=== PATIENT | female | born 1950 | race Caucasian/White ===

== ENCOUNTER 2016-09-26 06:46 | Day surgery (SDC) | payer MEDICARE, BC ==
[2016-09-26] MEDS ORDERED: DEXAMETHASONE PRESERVATIVE FREE 10MG/ML VIAL IV ONE (11:06)
[2016-09-26] MEDS ORDERED: LIDOCAINE 1% W/EPI 1:200,000 MPF 30ML SQ ONE (11:06)
[2016-09-26] MEDS ORDERED: BUPIVACAINE 0.5% W/EPI MPF 30 ML VIAL IVP ONE (11:06)
[2016-09-26] MEDS ORDERED: HYDROCODONE/APAP 7.5/325MG TABLET PO ONE (11:06)
[2016-09-26] MEDS ORDERED: LIDOCAINE 2% MDV (20MG/ML) 20ML VIAL IV ONE (15:46)
[2016-09-26] MEDS ORDERED: MIDAZOLAM HCL 2MG/2ML VIAL IV ONE (15:46)
[2016-09-26] MEDS ORDERED: FENTANYL PF 100MCG/2ML VIAL IV ONE (15:46)
[2016-09-26] MEDS ORDERED: PROPOFOL 10 MG/ML VIAL IV ONE (15:46)
--- NOTE | 2016-09-28 08:40 | Operative Note ---
PAIN SERVICE OPERATIVE REPORT DATE OF PROCEDURE: 09/26/2016. PREOPERATIVE DIAGNOSIS: CERVICAL SPONDYLOSIS WITHOUT MYELOPATHY, ICD10 CODE M47.812. PROCEDURE: Radiofrequency rhizotomy right cervical facets 3-4, 4-5, 5-6, and 6-7. SURGEON: Sanchez Rosa D.O. ANESTHESIA: Local sedation. ANESTHESIA PROVIDER: Harry Connell CRNA. INDICATIONS: This patient presents with neck pain to the right. Examination shows tenderness in the cervical spine. Range of motion does cause pain to the neck with extension. Diagnostics show multilevel spondylosis. A facet series resulted in up to 75 to 90 percent pain control. Due to the failure of all therapies and success of the facet series, she is here for rhizotomy for more long-term relief. DESCRIPTION OF PROCEDURE: Intravenous line, vital sign monitoring, and IV sedation. Prepped and draped with sterile technique. Cervical facets in the area of pain on the right at 3-4, 4-5, 5-6, and 6-7 were marked and infiltrated. A 20-gauge rhizotomy cannula was positioned. Stimulation trials were conducted. Rhizotomy burn was performed. Local with anti-inflammatory into the sites. Topical antibiotic and sterile dressings were applied. We will monitor and evaluate. Sanchez Rosa D.O. Date Time Job Number: [id number] cc: Ary Quan D.O., F.A.A.Josue BUSTILLOS
== END 2016-09-26 09:30 | disposition home or self-care (01) ==
LOC: SUR 06:46
PROVIDERS: ATTEND Pain Medicine Interventional Pain Medicine
DX: M47.812 Spondylosis without myelopathy or radiculopathy, cervical region (principal); I10 Essential (primary) hypertension; E78.00 Pure hypercholesterolemia, unspecified
CPT/HCPCS: 64633; 64634 ×3; 01936; J1100; J3010

== ENCOUNTER 2018-05-23 07:25 | Day surgery (SDC) | payer MEDICARE, BC ==
--- NOTE | 2018-05-23 06:39 | History and Physical - Ferro ---
CHIEF COMPLAINT/HISTORY OF CHIEF COMPLAINT: This patient presents with a history of intractable lumbar radiculopathy. Due to the failure of therapy a spinal cord stimulator trial was conducted on 04/17/18 with 75+% pain control. Due to the failure of therapy and the success of the stimulator trial, the patient presents today for implantation of a permanent system. PAST MEDICAL HISTORY: Asthmatic bronchitis, hypertension, and gastrointestinal regurgitation. PAST SURGICAL HISTORY: Spinal infusion device, knee surgery, and arthroscopic surgery. MEDICATIONS ON ADMISSION: List to be provided. ALLERGIES: CEFTIN AND TAPE. FAMILY/PSYCHOSOCIAL HISTORY: Social history - Noncontributory. Family history - Noncontributory. SYSTEMS REVIEW: The patient is appropriate in no acute distress. The remainder of the systems review is positive for blood pressure, degenerative arthritis, fibromyalgia, anemia, depression, trouble sleeping and anxiety disorder. PHYSICAL EXAMINATION: Height is 5'7", weight is 170. No vital signs. HEENT: Within normal limits. LUNGS: Clear. HEART: Regular rate and rhythm. ABDOMEN: Nontender. MUSCULOSKELETAL: Examination of the musculoskeletal system shows diffuse tenderness at the lumbar spine. Range of motion does produce pain throughout the low back and extending into the lower extremities. Motor and sensory field function is intact. There are mild sensory abnormalities across L4 and L5 and weakness into both lower extremities. No assistive device required. NEUROLOGIC: Cranial nerves are intact. IMPRESSION: INTRACTABLE LUMBAR RADICULOPATHY. PLAN: The patient is here for implantation of a permanent spinal cord stimulator due to the failure of therapy and the success of the trial. The procedure will be considered outpatient although an overnight stay will be evaluated. The potential risks, side effect and complications have all been reviewed and discussed. JOB NUMBER: [id number] [facility]
[~2018-05-23 07:25] MED LIST: ACETAMINOPHEN 1,000 MG/100 ML BTL IV ONE; CLINDAMYCIN 600MG/50ML PREMIX 600 MG/50 ML BAG IVPB ONE; FAMOTIDINE 20MG TABLET PO ONE; MECLIZINE 25 MG TABLET PO ONE; METOCLOPRAMIDE 10 MG TABLET PO ONE
[2018-05-23] MEDS ORDERED: PROPOFOL 10 MG/ML VIAL IV ONE (07:26)
[2018-05-23] MEDS ORDERED: MIDAZOLAM HCL 2MG/2ML VIAL IV ONE (07:26)
[2018-05-23] MEDS ORDERED: 0.9 % SODIUM CHLORIDE 10 ML VIAL IVP ONE (07:26)
[2018-05-23] MEDS ORDERED: BUPIVACAINE 0.5% W/EPI MPF 30 ML VIAL IVP ONE (07:26)
[2018-05-23] MEDS ORDERED: FENTANYL PF 100MCG/2ML VIAL IV ONE (07:26)
[2018-05-23] MEDS ORDERED: KETOROLAC 30 MG/ML VIAL IVP ONE (07:26)
[2018-05-23] MEDS ORDERED: LIDOCAINE 2% MDV (20MG/ML) 20ML VIAL IV ONE (07:26)
[2018-05-23] MEDS ORDERED: CLINDAMYCIN (PEDIATRIC DOSING) 150 MG/ML VIAL IVPB ONE (07:26)
[2018-05-23] MEDS ORDERED: LIDOCAINE 1% W/EPI 1:200,000 MPF 30ML SQ ONE (07:26)
[2018-05-23] MEDS ORDERED: **ER** KETAMINE HCL 500MG/10ML VIAL IV ONE (07:26)
--- NOTE | 2018-05-24 16:36 | Operative Note ---
DATE: 05/23/2018. PREOPERATIVE DIAGNOSES: 1. INTRACTABLE LUMBAR RADICULOPATHY, ICD-10 CODE M54.16 AND M54.17. 2. TWO-LEAD SPINAL CORD STIMULATOR INTERNAL GENERATOR NONFUNCTIONAL. PROCEDURES: 1. Incision, subcutaneous dissection, and removal of two implanted spinal cord stimulators. 2. Incision, subcutaneous dissection, and removal of internal pulse generator for two nonfunctional stimulators at the right posterior gluteal margin. 3. Left epidural access at T12-L1, placement of spinal cord stimulator lead 1, [employer] Infineon 16 with 16 electrodes, positioned left T7. 4. Fluoroscopically guided left epidural access at T11-12 with placement of spinal cord stimulator lead 2, [employer] Infinion 16 with 16 electrodes , positioned right T7. 5. Complex programming of lead 1 over 20 minutes followed by complex programming of lead 2 over 20 minutes. 6. Incision, subcutaneous dissection, and anchoring of lead 1 and lead 2 to the supraspinous fascia with [employer] locking anchors. 7. Revision of right posterior gluteal margin pouch for placement of generator identified as a nanoMR programmable rechargeable Wavewriter generator. 8. Tunneling between pouches with placement of external portion of lead 1 and lead 2 into the generator pouch, each lead interfaced to the generator. 8. Placement of generator pouch securing to posterior fascia with nonabsorbable suture. Placement of leads into the pouch. 9. Closure of incisions with Stratafix suture, #2-0 for the fascia, and #3-0 for the skin. Dermabond closure. 10. Complex recovery room programming, internal generator, home use, two stimulators, in the recovery room for 20 minutes. SURGEON: Sanchez Rosa D.O. INDICATIONS: This patient presents with a history of intractable pain which is bilateral in the low back, hips, and legs. A number of years previously a spinal cord stimulator was implanted with an internal generator which, over time , became nonfunctional. She was given the options to remove or replace, and she opted to remove and replace. DESCRIPTION OF PROCEDURE: Intravenous lines, vital sign monitoring, and intravenous sedation. Prepped and draped with sterile technique. Under imaging the previous incisional site for the two implanted leads was infiltrated with local. An incision was made and subcutaneous dissection was conducted to the leads and their anchors. The suture was cut and the lead anchors were removed. Each of the two leads was then removed intact. Each electrode was accounted for. At the right posterior gluteal margin generator pouch, the skin was infiltrated. An incision was made and subcutaneous dissection was conducted to the generator. The generator and its connections to the leads were removed intact. Antibiotic irrigation and Bovie for hemostasis. At T12-L1 and T11-12, the skin was infiltrated. Using two separate curved access Epimed needles with loss of resistance, the space was accessed. At 12-1 spinal cord stimulator lead 1, a [employer] Infineon 16 with 16 electrodes, was positioned left midline of T7. With the access at T11-12, spinal cord stimulator lead 2, a [employer] Infineon 16 with 16 electrodes, was positioned right of T7. Complex programming of lead 1 over 20 minutes was followed by complex programming of lead 2 over 20 minutes. This resulted in complete pattern of stimulation across the back and legs. The patient indicated we had all of the areas of her pain. She was given the options to implant, continue to program, or remove. She opted to implant. The questions were repeated with the same response. The skin was infiltrated. An incision was made, and subcutaneous dissection was conducted to the supraspinous fascia. Each of the needles were removed, and the leads were anchored to the supraspinous fascia with a [employer] locking anchor. Antibiotic irrigation and Bovie for hemostasis. The previous right posterior gluteal margin generator pouch was then revised and enlarged to accommodate the [employer] generator. A tunneling tool was used to carry the leads into the generator pouch, and then each lead was interfaced to the generator. Antibiotic irrigation and Bovie for hemostasis. The generator was placed into the pouch and was secured to the posterior fascia with nonabsorbable suture. Both incisions were closed using Stratafix suture with #2-0 for the fascia and #3-0 for the skin. Dermabond closure. The patient was transferred to the recovery room stable with no side effects from the procedure or the sedation. When fully awake and alert, complex programming of the generator for 20 minutes was performed re-establishing stimulation of pain control to all appropriate areas. The patient and her were instructed on the use of the system and were provided with information on air messaging and then prepared for discharge. DISCHARGE INSTRUCTIONS: 1. The sites are to remain clean and dry. No showering or bathing. Although the Stratafix will allow showering, she should not sit in water. 2. Standard medications to be resumed including Levaquin, the antibiotic, 500 mg once a day for 14 days. 3. The office is to contact the patient in 24 to 48 hours to set up an appointment in seven to ten days to evaluate the sites. Until then her activities should stay low. 4. All other instructions were provided including numbers to contact with problems. She was then discharged. JOB NUMBER: [id number] cc: Ashley Zamorano
--- NOTE | 2018-05-25 20:26 | RADIOLOGY REPORT ---
EXAM: SPINE, 1 VIEW HISTORY: PAIN STIMULATOR PLACEMENT. TECHNIQUE: A single AP view of the lumbar spine was performed. FINDINGS: Stimulator lead tips are at the T5-6 level. IMPRESSION: STIMULATOR LEAD TIPS ARE AT THE T5-6 LEVEL. JOB NUMBER: [id number] MTDD
== END 2018-05-23 11:45 | disposition home or self-care (01) ==
LOC: SUR 07:25
PROVIDERS: ATTEND Pain Medicine Interventional Pain Medicine
DX: M54.16 Radiculopathy, lumbar region (principal); M54.17 Radiculopathy, lumbosacral region; I10 Essential (primary) hypertension; E78.00 Pure hypercholesterolemia, unspecified; E11.9 Type 2 diabetes mellitus without complications; J45.909 Unspecified asthma, uncomplicated; K21.9 Gastro-esophageal reflux disease without esophagitis
CPT/HCPCS: 63663; 63685; 01936; 95972; 36416; 82948; 72020; J1885; J3010; C1820; C1883

== ENCOUNTER 2018-08-06 07:51 | Day surgery (SDC) | payer MEDICARE, BC ==
--- NOTE | 2018-08-05 12:53 | History and Physical - Ferro ---
CHIEF COMPLAINT/HISTORY OF CHIEF COMPLAINT: This patient presents with a history of intractable cervical radiculopathy. Due to the failure of therapy a spinal cord stimulator was conducted on 07/16/18 with 75+% pain control. Due to the failure of therapy and the success of the trial, the patient presents today for implantation of a permanent system. PAST MEDICAL HISTORY: Asthmatic bronchitis, hypertension, and gastrointestinal disease. PAST SURGICAL HISTORY: Spinal infusion pump, knee surgery, and arthroscopic surgery. MEDICATIONS ON ADMISSION: List to be provided. ALLERGIES: SEPTA AND TAPE. FAMILY/PSYCHOSOCIAL HISTORY: Social history - Noncontributory. Family history - Noncontributory. SYSTEMS REVIEW: The patient is appropriate in no acute distress. The remainder of the systems review is positive for blood pressure problems, degenerative arthritis, fibromyalgia, anemia, depression, difficulty sleeping, and anxiety disorder. PHYSICAL EXAMINATION: Height is 5'7", weight is 170. No vital signs. HEENT: Within normal limits. LUNGS: Clear. HEART: Rapid and regular. ABDOMEN: Nontender. MUSCULOSKELETAL: Examination of the musculoskeletal system shows diffuse tenderness throughout the cervical spine and extending along the trapezius, suprascapular, deltoid, and medial rhomboid muscle groups. There is a bilateral upper extremity component producing mild sensory and motor weakness. Hand grasp and aircraft riveter strength is intact. NEUROLOGIC: Cranial nerves are intact. IMPRESSION: CERVICAL RADICULOPATHY, ICD-10 CODE M54.12. PLAN: The patient is here for implantation of a permanent spinal cord stimulator after the failure of therapy and the success of the trial. The procedure will be considered outpatient although an overnight stay will be evaluated. JOB NUMBER: [id number] MTDD
[~2018-08-06 07:51] MED LIST changes: -CLINDAMYCIN 600MG/50ML PREMIX 600 MG/50 ML BAG IVPB ONE; +LEVOFLOXACIN 500MG IVPB 500 MG/100 ML BAG IVPB ONE
[2018-08-06] MEDS ORDERED: FENTANYL PF 100MCG/2ML VIAL IV ONE (07:52)
[2018-08-06] MEDS ORDERED: LIDOCAINE 1% W/EPI 1:200,000 MPF 30ML SQ ONE (07:52)
[2018-08-06] MEDS ORDERED: BUPIVACAINE 0.5% W/EPI MPF 30 ML VIAL IVP ONE (07:52)
[2018-08-06] MEDS ORDERED: 0.9 % SODIUM CHLORIDE 500ML 500 ML IV ONE (07:52)
[2018-08-06] MEDS ORDERED: PROPOFOL 10 MG/ML VIAL IV ONE (07:52)
[2018-08-06] MEDS ORDERED: LIDOCAINE 2% MDV (20MG/ML) 20ML VIAL IV ONE (07:52)
[2018-08-06] MEDS ORDERED: KETAMINE HCL 100MG/1ML VIAL INJ ONE (07:52)
[2018-08-06] MEDS ORDERED: MIDAZOLAM HCL 2MG/2ML VIAL IV ONE (07:52)
[2018-08-06] MEDS ORDERED: LEVOFLOXACIN IV ONE (07:52)
--- NOTE | 2018-08-07 21:08 | Operative Note ---
DATE OF SURGERY: 08/06/2018 PREOPERATIVE DIAGNOSIS: CERVICAL RADICULOPATHY, ICD-10 CODE = M54.12. SURGERY: 1. FLUOROSCOPIC-GUIDED EPIDURAL ACCESS LEFT T1-2. PLACEMENT OF SPINAL CORD STIMULATOR LEAD 1, A [employer] INFINION 16 WITH 6 ELECTRODES POSITIONED LEFT C2. 2. FLUOROSCOPIC-GUIDED EPIDURAL ACCESS LEFT T2-3. PLACEMENT OF SPINAL CORD STIMULATOR LEAD 2, A [employer] INFINION 16 WITH 6 ELECTRODES POSITIONED RIGHT C2. 3. COMPLEX PROGRAMMING OF LEAD 1 OVER 20 MINUTES. COMPLEX PROGRAMMING OF LEAD 2 OVER 20 MINUTES. 4. INCISION, SUBCUTANEOUS DISSECTION, AND ANCHORING OF LEAD 1 AND LEAD 2 TO SUPRASPINOUS FASCIA USING A [employer] LOCKING ANCHOR. 5. INCISION, SUBCUTANEOUS DISSECTION, AND CREATION OF A SUBCUTANEOUS POUCH AT RIGHT FLANK, A SITE PICKED BY THE PATIENT FOR THE GENERATOR, A [employer] SCIENTIFIC PROGRAMMABLE, RECHARGEABLE WAVEWRITER. 6. TUNNELING BETWEEN POUCHES. PLACEMENT OF EXTERNAL PORTION OF LEAD 1 AND LEAD 2 INTO GENERATOR POUCH, EACH LEAD INTERFACED WITH GENERATOR. 7. CLOSURE OF BOTH INCISIONS USING STRATAFIX SUTURE, #2-0 FASCIA, #3-0 SKIN. DERMABOND CLOSURE. 8. COMPLEX RECOVERY ROOM PROGRAMMING INTERNAL GENERATOR HOME USE TWO STIMULATORS 20 MINUTES. SURGEON: TESSA NGUYEN D.O. ANESTHESIA: LOCAL SEDATION. ANESTHESIA PROVIDER: ARMANDO PLATT CRNA. INDICATION: This patient presents with a history of an intractable cervical radiculopathy. Due to the failure of all previous therapies and the success of a spinal cord stimulator trial, the patient presents today by request for permanent implantation. SURGERY: Intravenous line, vital sign monitoring, IV sedation by Anesthesia. Patient positioned prone. Sterile prep, sterile technique. Under imaging from the left, the epidural interspace at T1-2 and 2-3 marked and infiltrated. Standard epidural needles with [id number] at 1-2, spinal cord stimulator lead 1, a [employer] Infinion 16 with 6 electrodes was positioned left of midline at C2. With the epidural access at T2-3, spinal cord stimulator lead 2, a [employer] Infinion 16 with 6 electrodes was positioned right of midline at C2. Complex programming of lead 1 over 20 minutes followed by complex programming of lead 2 over 20 minutes resulting in complete patterns of stimulation across the neck, head, and into the shoulders and arms. The patient indicating we had all the areas of the pain. She was given the option to implant, continue to program or remove; she opted to implant. The questions were repeated with the same response. The skin above and below both needles infiltrated, incision made, and subcutaneous dissection was conducted into the supraspinous fascia. The needles were removed and then each lead was anchored to the supraspinous fascia with a [employer] locking anchor. At the right flank, a site picked by the patient for the generator, skin infiltrated, incision made, and subcutaneous dissection was conducted to form a pouch of suitable size and depth for the generator, a [employer] programmable, rechargeable, WaveWriter. A tunneling tool was used to carry the leads into the generator pouch and then each lead was interfaced with the generator. Antibiotic irrigation and Bovie hemostasis. With the generator in the pouch and the leads in the pouch, both incisions were closed using STRATAFIX suture, #2-0 fascia and #3-0 skin. Dermabond closure. he patient was transported to the Recovery stable. No side-effects from the procedure or the sedation. When fully awake and alert, complex programming in the Recovery Room performed over 20 minutes reestablishing stimulation to all the appropriate areas. She was instructed on the use of the system, as was her , and then prepared for discharge by their request. DISCHARGE INSTRUCTIONS: 1. The sites will remain clean and dry. No showering or bathing in any way that would disrupt dressings. Although the Dermabond will allow showing, she should not sit in water or tub. 2. Standard medications will be resumed including the antibiotic, Levaquin, 500 mg once a day for 14 days. 3. The office will contact the patient in the next 24 to 48 hours to set up a time in 7 to 10 days for us to evaluate the sites. Until then, the sites should remain intact. Do not pull the dressing off. All other instructions provided, numbers to contact if problems given. She will be seen in the office. cc: Dr. George Hinds JOB NUMBER: [id number] MTDD
== END 2018-08-06 12:55 | disposition home or self-care (01) ==
LOC: SUR 07:51
PROVIDERS: ATTEND Pain Medicine Interventional Pain Medicine
DX: M54.12 Radiculopathy, cervical region (principal); J45.909 Unspecified asthma, uncomplicated; I10 Essential (primary) hypertension
CPT/HCPCS: 63685; 63650 ×2; 01936; 95972; J3010; J1956; J3490; C1820; C1883; J7040

== ENCOUNTER 2019-08-05 08:23 | Day surgery (SDC) | payer MEDICARE, BC ==
--- NOTE | 2019-08-05 06:42 | History and Physical - Ferro ---
CHIEF COMPLAINT/HISTORY OF CHIEF COMPLAINT: This patient presents with a history of an intractable lumbar radiculopathy. Diagnostic studies show lumbar spinal stenosis at L2-L3, L3-L4, and L4-L5. The implanted spinal infusion system is in place and the spinal catheter access is at L4-L5. Her pain pattern is bilateral lower extremity radiculopathy aggravated and intensified with ambulation, reduced by sitting and forward bending. Her treatment history has been extensive perhaps 16-20 years. Surgical evaluation had recommended multiple levels of fusion and decompression. Due to the failure of therapy and the symptom pattern consistent with neurogenic intermittent claudication secondary to spinal stenosis, she is here for interspinal spacer placement at L2-L3 and L3-L4. PAST MEDICAL HISTORY: Asthmatic bronchitis, hypertension, and gastrointestinal disease. PAST SURGICAL HISTORY: Lumbar spinal infusion device placement, spinal cord stimulator placement, and knee surgery. MEDICATIONS ON ADMISSION: List to be provided. ALLERGIES: SEPTA AND TAPE. FAMILY/PSYCHOSOCIAL HISTORY: Family history - Noncontributory. Social history - Noncontributory. SYSTEMS REVIEW: The patient is appropriate in no acute distress. The remainder of the systems review is positive for blood pressure, degenerative arthritis, fibromyalgia, anemia, depression, difficulty sleeping, and anxiety disorder. PHYSICAL EXAMINATION: Height is 5'7", weight is 170. No vital signs. HEENT: Within normal limits. LUNGS: Clear. HEART: Rapid and regular. ABDOMEN: Nontender. MUSCULOSKELETAL: Examination of the musculoskeletal system shows a bilateral lower extremity pain pattern which has intensified with ambulation, reduced by forwarding bending and sitting. There is mild lower extremity weakness and numbness. Ambulation - No assistive device utilized. NEUROLOGIC: Cranial nerves are intact. IMPRESSION: LUMBAR SPINAL STENOSIS WITH NEUROGENIC INTERMITTENT CLAUDICATION, ICD-10 CODE M48.062. PLAN: The patient is here for interspinal spacer placement at L2-L3 and L3-L4. The procedure will be considered outpatient, although an overnight stay will be evaluated. The potential risks, side effects and complications have been reviewed and discussed. Interaction with a company commercial representative and clinical specialist is provided. JOB NUMBER: [id number] MTDD
[~2019-08-05 08:23] MED LIST changes: -ACETAMINOPHEN 1,000 MG/100 ML BTL IV ONE; +ACETAMINOPHEN 1,000 MG/100 ML BTL IVPB ONE
[2019-08-05] MEDS ORDERED: MIDAZOLAM HCL 2MG/2ML VIAL IV ONE (08:24)
[2019-08-05] MEDS ORDERED: LIDOCAINE 2% MDV (20MG/ML) 20ML VIAL IV ONE (08:24)
[2019-08-05] MEDS ORDERED: PROPOFOL 10 MG/ML VIAL IV ONE (08:24)
[2019-08-05] MEDS ORDERED: FENTANYL PF 100MCG/2ML VIAL IV ONE (08:24)
[2019-08-05] MEDS ORDERED: RINGERS SOLUTION,LACTATED 1,000 ML IV ONE (09:05)
[2019-08-05] MEDS ORDERED: LIDOCAINE 1% W/EPI 1:200,000 MPF 30ML SQ ONE (11:47)
[2019-08-05] MEDS ORDERED: BUPIVACAINE 0.5% W/EPI MPF 30 ML VIAL SQ ONE (11:48)
[2019-08-05] MEDS ORDERED: HYDROCODONE/APAP 7.5/325MG TABLET PO ONE (12:24)
--- NOTE | 2019-08-05 13:01 | Operative Note - Ferro ---
DATE OF SURGERY: 08/05/2019 PREOPERATIVE DIAGNOSIS: LUMBAR SPINAL STENOSIS WITH NEUROGENIC INTERMITTENT CLAUDICATION, ICD-10 CODE M48.062. OPERATION: 1. FLUOROSCOPICALLY GUIDED PLACEMENT OF INTERSPINOUS PROCESS SPACER AT L2-L3 WITH FLUOROSCOPICALLY GUIDED IMAGING. 2. FLUOROSCOPICALLY GUIDED PLACEMENT OF INTERSPINOUS SPACER AT L3-L4 WITH RADIOLOGIC SUPERVISION AND DIRECTION. SURGEON: Sanchez Rosa D.O. ANESTHESIA: Local sedation ANESTHESIA PROVIDER: Harry Connell CRNA INDICATION: This patient presents with multiple level lumbar spinal stenosis and pain in the legs which has been characterized as neurogenic intermittent claudication. The pain is aggravated and intensified with ambulation and with forward bending and sitting it subsides, eliminates and controls the pain. The treatment history has been extensive and unsuccessful. She is here for interspinous spacer placement for indirect lumbar decompression at L2-L3 and L3- L4 along with what was identified under imaging with lumbar spinal stenosis. PROCEDURE: Intravenous line, vital sign monitoring, IV sedation. The patient is positioned prone, sterile prep, sterile technique, imaging and local for infiltration. The spinal interspace at L3-L4 was identified, skin infiltrated, using a series of dilators the interspinous space was opened, a reaming device was used to clean the interspinous ligament at the base posterior to the lamina and then a size 12 interspinous spacer was inserted, expanded, distracting the spinous processes at L3-L4. The device was removed, the spacer had been tapped into place, seated posterior to the lamina at L3-L4. Antibiotic irrigation. On AP imaging the spinal interspace at L2-L3 was marked, infiltrated with local, then a series of dilators was used to distract the spinous processes at L2-L3. A reaming device was used to clean out the interspinous ligament and then a #12 or size 12 interspinous spacer was inserted under imaging, positioned posterior to the lamina on AP and lateral imaging, and the expanded distracting the spinous processes at L2-L3. The spacer was left in place, the inserting device was removed, antibiotic irrigation was then performed. A 2-0 Vicryl suture was used to close the fascia and then harleen were used to close the skin at both incisional sites. The patient tolerated the procedure without difficulty. There were no problems during the anesthesia and there were no problems or difficulties with the device placement. She was transported to the Recovery Room stable. No side effects from the procedure or sedation. She was monitored until stable and then prepared for discharge. DISCHARGE INSTRUCTIONS: The sites are to remain clean and dry. An Op-Site dressing had been placed. She is to keep this dressing dry. She will be seen in the office in 10-14 days. Her total period of restrictions is six weeks. Between now and her first evaluation in two weeks she is to limit her activities, avoiding bend, lift, push, pull. We will see the patient in the office and evaluate the sites and remove harleen. All instructions are provided. The antibiotic Levaquin will be started for 10-14 days and a prescription for [place] pain control for the incisions has been provided. She will be seen in the office. She was discharged to home stable. J[facility]BER: [id number] [facility]
--- NOTE | 2019-08-07 16:45 | RADIOLOGY REPORT ---
EXAMINATION: Lumbar Spine Single View EXAM DATE: 08/05/2019 3:17 PM TECHNIQUE: Single portable frontal view INDICATION: S/P LUMBAR STABALIZATION DEVICE COMPARISON: None ENCOUNTER: Initial FINDINGS: There is minimal dextroconvex curvature of the upper lumbar spine. Mild multilevel endplate degenerat tiaog changes are seen. There is no evidence of fracture on this view. There are 2 electronic devices on the right, one is located overlying the rib cage. The other project s over the right iliac bone. Each electronic device has associated leads extending towards the spine. The more cephalad electronic device leads not have included in the [id number]. The more inferior device leads appearing to the lumbar spinal canal at the L2 level and extending in a cephalad directi on with the tip is also not included in the [id number]. A third electronic device is seen, located on the left side overlying the left iliac bone. A needle like density projects in the left side overlying the left side of the L4-[address] level. Nonspecific metallic densities overlying the lower lumbar spine could relate to an interbody implants , clinically correlate. IMPRESSION: Bilateral electronic devices project over the abdomen as described above. Clinical correlation is nec essary. Dictated by: Rigoberto Mcneil MD on 08/07/2019 4:39 PM. .
== END 2019-08-05 12:52 | disposition home or self-care (01) ==
LOC: SUR 08:23
PROVIDERS: ATTEND Pain Medicine Interventional Pain Medicine
DX: M48.062 Spinal stenosis, lumbar region with neurogenic claudication (principal); E11.9 Type 2 diabetes mellitus without complications; I10 Essential (primary) hypertension; E78.00 Pure hypercholesterolemia, unspecified
CPT/HCPCS: 72020; 93005; C1821; J1956; J7120